=== PATIENT | female | born 2005 | race Caucasian/White ===

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

== ENCOUNTER 2023-05-27 09:54 | Emergency (ER) | payer OTHER ==
[2023-05-27 10:12] VITALS: BP 101/70; PULSE 80; RESP 18; TEMP 98.2; BMI 30.7
[2023-05-27] MEDS ORDERED: SODIUM CHLORIDE 1,000 ML IV STA (10:48)
[2023-05-27] MEDS ORDERED: ACETAMINOPHEN 1000 MG/100 ML BAG IVPB ONE (10:48)
[2023-05-27] MEDS ORDERED: ACETAMINOPHEN INJECTION 100 ML IVPB ONE (11:40)
[2023-05-27 11:45] LABS: BASO % 0.9 % (0-2.0); EOS % 0.6 % (0-4.5); HEMATOCRIT 34.4 % (32.4-45.2); HEMOGLOBIN 11.1 GM/dL (10.7-15.3); LYMPH % 36.2 % (8-40); MCHC 32.4 g/dl (32.0-36.0); MEAN PLT VOLUME 8.1 fl (7.5-11.1); MONO % 6.2 % (3.8-10.2); NEUT % 56.1 % (42.8-82.8); PLATELET COUNT 227 10^3/uL (134-434); RBC 4.64 M/mm3 (3.60-5.2); RDW 16.5 % (11.6-15.6)
[2023-05-27 11:53] LABS: INR 1.11 (0.83-1.09); PROTHROMBIN TIME (PATIENT) 12.9 SEC (9.7-13.0)
[2023-05-27 11:56] LABS: ACTIVATED PTT 33.1 SECONDS (25.2-36.5)
[2023-05-27 12:12] LABS: POTASSIUM 4.4 mmol/L (3.5-5.1)
[2023-05-27 12:14] LABS: CALCIUM 9.5 mg/dL (8.5-10.1)
[2023-05-27 12:15] LABS: BLOOD UREA NITROGEN 6.3 mg/dL (7-18)
[2023-05-27 12:18] LABS: CREATININE 0.6 mg/dL (0.55-1.3)
[2023-05-27 12:19] LABS: BILIRUBIN,TOTAL 0.3 mg/dL (0.2-1); TOT PROT 7.4 g/dl (6.4-8.2)
[2023-05-27 12:20] LABS: URINE APPEARANCE CLEAR; URINE BILIRUBIN NEGATIVE (NEGATIVE); URINE COLOR YELLOW; URINE GLUCOSE (UA) NEGATIVE (NEGATIVE); URINE KETONE NEGATIVE (NEGATIVE)
[2023-05-27 12:21] LABS: PH,URINE 6.5 (5.0-8.0); URINE LEUK ESTERASE 1+ (NEGATIVE); URINE NITRITE NEGATIVE (NEGATIVE); URINE PROTEIN NEGATIVE (NEGATIVE); URINE UROBILINOGEN 0.2 mg/dL (0.2-1.0)
[2023-05-27 12:22] LABS: EPI CELLS FEW /uL (0-25.1); URINE RBC 0-3 /uL (0-23.9)
[2023-05-27] MEDS ORDERED: HYDROmorphone HCl 2 MG/ML VIAL IVPUSH STA (13:23)
[2023-05-27] MEDS ORDERED: HYDROmorphone HCl 2 MG/ML VIAL ONE (14:27)
[2023-05-27] MEDS ORDERED: KETOROLAC TROMETHAMINE 30 MG/1 ML VIAL IVPUSH ONE (18:06)
[2023-05-27] MEDS ORDERED: KETOROLAC TROMETHAMINE 30 MG/1 ML VIAL ONE (18:31)
== END 2023-05-27 21:46 | disposition home or self-care (01) ==
LOC: JERFT 09:54
PROC: 3E033NZ Introduction of Analgesics, Hypnotics, Sedatives into Peripheral Vein, Percutaneous Approach (ICD-10-PCS; principal; 2023-05-27)
PROC: 3E0333Z Introduction of Anti-inflammatory into Peripheral Vein, Percutaneous Approach (ICD-10-PCS; 2023-05-27)
PROC: 3E033GC Introduction of Other Therapeutic Substance into Peripheral Vein, Percutaneous Approach (ICD-10-PCS; 2023-05-27)
PROC: 3E0337Z Introduction of Electrolytic and Water Balance Substance into Peripheral Vein, Percutaneous Approach (ICD-10-PCS; 2023-05-27)
DX: R10.31 Right lower quadrant pain (principal); R63.0 Anorexia; R11.0 Nausea; Z20.822 Contact with and (suspected) exposure to COVID-19
CPT/HCPCS: 0241U-QW; 36415; 74177-TC; 76856-TC; 80053; 81003; 83690; 84703; 85025; 85610; 85730; 86850; 86900; 86901; 87077; 87086; 96361; 96374; 96375; 99285-25; Q9967